=== PATIENT | male | born 1955 | race African-American/Black ===

== ENCOUNTER 2017-04-29 16:31 | Outpatient (CLI) ==
[2017-04-29 16:51] LABS: BILIRUBIN,URINE Negative (NEGATIVE); KETONES,URINE Negative (NEGATIVE); LEUKOCYTE ESTERASE ,URINE Negative (NEGATIVE); NITRITE,URINE Negative (NEGATIVE); PH,URINE 7.5 (5-9); PROTEIN,URINE Negative (NEGATIVE); URINE, BLOOD Negative (NEGATIVE)
[2017-04-29 16:56] LABS: ADD URINE MICROSCOPIC NO
== END 2017-04-29 16:32 | disposition home or self-care (01) ==
LOC: NONPT 16:31
PROVIDERS: ATTEND Family Medicine
DX: Z01.812 Encounter for preprocedural laboratory examination (principal)
CPT/HCPCS: 81001